=== PATIENT | male | born 1950 | race Caucasian/White ===

== ENCOUNTER 2025-02-26 17:47 | Inpatient (IN) | payer MEDICARE, OTHER, SELFPAY ==
[2025-02-26 18:37] VITALS: BMI 29.9
[2025-02-26] MEDS ORDERED: Calcium Carbonate 500 MG ChewTAB PO PRN (22:59)
[2025-02-26] MEDS ORDERED: Ondansetron PF 4 MG/2 ML Vial IVP PRN (22:59)
[2025-02-27 04:06] LABS: #Basophils 0.03 10x3/uL (0.0-0.2); #Eosinophils Less than 0.03 10x3/uL (0.0-0.7); #Monocytes 0.82 10x3/uL (0.11-0.59); #Neutrophils 2.53 10x3/uL (1.40-6.50); %Basophils 0.7 % (0.0-1.0); %Eosinophils 0.4 % (0.0-10.0); %Lymphocytes 25.1 % (21.0-51.0); %Monocytes 18.0 % (0.0-10.0); %Neutrophils 55.6 % (42.0-75.0); Hematocrit 40.2 % (42.0-52.0); Hemoglobin 13.6 g/dL (14.0-18.0); Mean Corpuscular Hemoglobin 30.6 pg (27.0-31.0); Mean Corpuscular Volume 90.5 fL (78.0-98.0); Platelet Count 195 10x3/uL (130-400); Red Blood Cell (RBC) Count 4.44 mill/uL (4.70-6.10); White Blood Cell (WBC) Count 4.55 10x3/uL (4.8-10.8)
[2025-02-27 04:37] LABS: ALT (SGPT) 8 U/L (Less than 45); AST (SGOT) 16 U/L (11-34); Albumin 3.6 g/dL (3.1-4.5); Alkaline Phosphatase 46 U/L (40-110); Anion Gap 12 mmol/L (10-20); BUN (Urea Nitrogen) 10 mg/dL (8.4-25.7); Bilirubin, Total 0.5 mg/dL (0.3-1.2); Calc. Creatinine Clearance 86 mL/min (70-130); Calcium 8.3 mg/dL (7.8-10.44); Carbon Dioxide 23 mmol/L (23-31); Chloride 103 mmol/L (98-107); Globulin 3.1 g/dL (2.4-3.5); Glucose 93 mg/dL (83-110); Potassium 3.6 mmol/L (3.5-5.1); Sodium 134 mmol/L (136-145)
[2025-02-27] MEDS: Aspirin 81 mg Enteric Coated Tablet PO SCH (12:25)
[2025-02-27] MEDS: Acetaminophen 325 MG TAB PO PRN (12:27)
[2025-02-28 04:14] LABS: Cardiac Risk 4.4 (Less than 4.5); Cholesterol 175.0 mg/dl (< 200 Desired); HDL Cholesterol 40.0 mg/dL (>60 Neg Risk); LDL Cholesterol, Calculated 121.0 mg/dL; Triglycerides 70.0 mg/dL (Less than 150)
[2025-02-28] MEDS: Aspirin 81 mg Enteric Coated Tablet PO SCH (09:25)
[2025-02-28 11:02] VITALS: BP 128/66; TEMP 98.4
== END 2025-02-28 12:30 | disposition home or self-care (01) | DRG 69 ==
LOC: INTOOBSV 17:47 → 2SE 17:47 → OBSVTOIN 02-27 15:47
PROVIDERS: ADMIT Hospitalist; ATTEND Emergency Medicine
DX: G45.9 Transient cerebral ischemic attack, unspecified (principal); Z88.2 Allergy status to sulfonamides; Z79.82 Long term (current) use of aspirin; Z79.899 Other long term (current) drug therapy; I10 Essential (primary) hypertension; Z86.718 Personal history of other venous thrombosis and embolism
CPT/HCPCS: 36415; 70544; 70549; 70551; 80053; 80061; 85025; 93880; G0378